=== PATIENT | female | born 1990 | race Two or more races ===

== ENCOUNTER → 2024-11-24 08:06 | Outpatient (REF) | payer BC, OTHER, SELFPAY | LOC: DHSLP 08:06 | PROVIDERS: ATTENDING PHYSICIAN Internal Medicine Critical Care Medicine; FAMILY PHYSICIAN Family Medicine | DX: G47.33 Obstructive sleep apnea (adult) (pediatric) (principal); R06.83 Snoring | CPT/HCPCS: 95810 ==